=== PATIENT | male | born 1990 | race Caucasian/White ===

== ENCOUNTER 2016-07-03 11:41 | Emergency (ER) | payer OTHER ==
--- NOTE | ~2016-07-03 | CR63 ---
[facility] Service of [facility] RADIOLOGY TEXT RESULTS PATIENT: JOSETTE MORALES LOCATION: [place] : [birth year] UNIT #: [id number] AGE: [address]: Akira Edouard MD SEX: M ORDER DR: [id number] [facility] [address] [facility]. [place], [place] [address] [id number] MR#: [id number] Acc #: [id number] NAME: JOSETTE MORALES : 1990 SEX: M STUDY DATE/TIME: 07/03/2016 13:56 UNIT: [facility] ROOM: STUDY DESCRIPTION: CR Chest 2 View Attending Physician: Akira Edouard M.D. Ordering Physician: Akira Edouard M.D. Primary Care Physician: Primary Care Physician No MEDICAL IMAGING REPORT This report is preliminary unless electronic signature is present EXAM Chest PA and lateral, 07/03/2016 HISTORY Shortness breath and cough beginning 4 days ago. FINDINGS PA and lateral examination of the chest upright shows a good expansion of the parenchyma with a normal distribution of the pulmonary vascularity. There is no indication of congestion, effusion, infiltrate, tumor, or nodular density. The pleural reflections and diaphragmatic contours are normal. The cardiac silhouette and mediastinal anatomy is within normal limits. IMPRESSION Normal chest. Dictated by... Tono Raygoza M.D. THIS IS AN ELECTRONICALLY VERIFIED REPORT Tono Raygoza M.D. at 07/04/2016 8:02 AM LEONID/hernán TD: 07/03/2016 15:36 JOB #: [id number] MEDICAL IMAGING REPORT Page 1 of 1 COPY
[~2016-07-03 11:41] MED LIST: AMOXICILLIN PO; FLEXERIL10 MG PO; NAPROSYN500 MG PO; NORCO 5/325 TAB1 TAB PO
[2016-07-03 14:17] LABS: INFLUENZA A NEG (NEG); INFLUENZA B NEG (NEG)
== END 2016-07-03 14:44 | disposition home or self-care (01) ==
LOC: CED 11:41
PROVIDERS: Emergency Medicine
DX: J06.9 Acute upper respiratory infection, unspecified (principal); J30.2 Other seasonal allergic rhinitis
CPT/HCPCS: 71020; 87804; 99284

== ENCOUNTER 2016-07-08 19:00 | Inpatient (IN) | payer OTHER ==
--- NOTE | ~2016-07-08 | PN ---
Unit #: [id number] #: [id number] Patient: ALONZO MORALES [id number] [facility] [address] [place] [address] [id number] MR#: [id number] NAME: ALONZO MORALES ROOM: [facility] Age: 26 Sex: M Admission Date: 07/08/2016 : 1990 Attending Physician: Tommie Lizama M.D. Admitting Physician: Tommie Lizama M.D. Primary Care Physician: Primary Care Physician Glenda CARTER NOTES DATE OF SERVICE 07/10/2016 DISCUSSION Alonzo Morales is a 26-year-old male seen on 07/10/2016. Patient interviewed, chart reviewed, I obtained information from nursing staff. Patient compliant, cooperative, mood sad, dysphoric, withdrawn, isolative, guarded. Denied any thoughts of harming self or others, but still having above-mentioned symptoms, tolerating medication fairly well. Vital signs stable: 98.5, 79, 126/80 COMPLETE REVIEW OF SYSTEMS Unremarkable. MENTAL STATUS EXAMINATION GENERAL APPEARANCE: Patient dressed casually. ATTENTION SPAN AND CONCENTRATION: Fair. Oriented in place and person. MOOD AND AFFECT: Labile. SPEECH: Regular rate. THOUGHT PROCESS: Goal directed. Patient denied any thoughts of harming self or others. RECENT AND REMOTE MEMORY: Poor. INSIGHT AND JUDGMENT: Poor. DIAGNOSES Mood disorder, NOS Amphetamine abuse disorder, moderate ASSESSMENT/PLAN Advised to continue with current medication and therapeutic protocol. If needed, consider further adjustment on medication. Dictated by... Anette Randall/francisco TD: 07/11/2016 00:09 JOB #: [id number] Unit #: [id number] #: [id number] Patient: ALONZO MORALES PROGRESS NOTES Page 1 of 1 X Tommie Lizama MD PROGRESS NOTE
--- NOTE | ~2016-07-08 | HP ---
Unit #: [id number] #: [id number] Patient: ALONZO MORALES [id number] [place] [address] [id number] MR#: [id number] NAME: ALONZO MORALES ROOM: [facility] Age: 26 Sex: M Admission Date: 07/08/2016 : 1990 Attending Physician: Tommie Lizama M.D. Admitting Physician: Tommie Lizama M.D. Primary Care Physician: Primary Care Physician No HISTORY AND PHYSICAL HISTORY OF PRESENT ILLNESS Alonzo is a 26 [address] [facility] because of his drug use. He smokes meth. PAST MEDICAL HISTORY 1. History of illicit substance abuse. 2. Psoriasis. 3. Hepatitis C. PAST SURGICAL HISTORY Nothing reported. ALLERGIES No known drug allergies. SOCIAL HISTORY Smokes one pack per day. Denies alcohol. Admits to a long history of illicit substance abuse to include methamphetamine. FAMILY HISTORY Medically noncontributory. REVIEW OF SYSTEMS CONSTITUTIONAL: No fever or chills. HEENT: Denies any sore throat, ear pain or runny nose. CARDIOVASCULAR: Denies chest pain, irregular heart rhythm or palpitations. LUNGS: He does report a deep harsh cough for the past 48 hours productive of moderate amounts of dark yellow sputum. He denies any increased temperature or shortness of breath. GASTROINTESTINAL: Denies nausea, vomiting, diarrhea or chronic constipation. ENDOCRINE: Denies history of increased thirst or urination. No recent significant weight loss or gain. GENITOURINARY: Denies dysuria, frequency, or hematuria. SKIN: Denies any rashes. HEMATOLOGIC: Denies history of increased bleeding or bruising. MUSCULOSKELETAL: Denies any hot, swollen joints. No generalized muscle pain. NEUROLOGIC: Denies problems with vision or speech. No frequent, severe headaches. No numbness, tingling or weakness in any extremities. Denies loss of bladder or bowel control. Unit #: [id number] #: [id number] Patient: ALONZO MORALES CURRENT MEDICATIONS 1. Zyprexa 10 mg q.h.s. 2. Celexa 20 mg q day 3. Nicotine patch 14 mg q day 4. Trazodone p.r.n. 5. Milk of Magnesia p.r.n. 6. Maalox p.r.n. 7. Tylenol p.r.n. PHYSICAL EXAMINATION GENERAL: Alert, well-nourished, in no apparent distress. VITAL SIGNS: Blood pressure 126/70, heart rate 80, respirations 16, temperature 98.6. WEIGHT: 175 pounds. HEIGHT: 5'9". SKIN: Warm and dry without rash or lesion. HEENT: Normocephalic. TMs not viewed. Oral and nasal passages clear. Conjunctivae clear. Pupils equal, round and reactive to light and accommodation. Extraocular movements intact. NECK: Supple without lymphadenopathy or thyromegaly. HEART: Regular rate and rhythm without murmur. CHEST: Deep harsh cough noted. Bilateral rhonchi. ABDOMEN: Soft, nontender. : Not done. EXTREMITIES: No evidence of cyanosis, clubbing or edema. Moves all extremities without focal deficit. NEUROLOGICAL: Grossly within normal limits. Cranial Nerves: II: Visual vasquez are intact. III, IV AND : Extraocular movements are intact. Pupils are equal, round and reactive to light. V: Facial sensation is grossly normal. VII: Facial movements and expression are normal. VIII: Auditory acuity grossly intact. IX, X: Uvula is midline. Phonation is normal. XI: Patient shrugs shoulders and turns head normally. XII: Tongue protrudes in the midline. Sensory and Motor Function: Sensory and motor sensation is grossly normal. Motor: moves all extremities well. Coordination: Gait is normal. Deep Tendon Reflexes: Intact. IMPRESSION Psychiatric admission RECOMMENDATIONS PSYCHIATRIC: Per psychiatrist. MEDICAL: 1. I see no contraindications to participating in facility's activities. 2. Start levaquin 500 mg 1 p.o. b.i.d. x 7 days. MEDICAL PROGNOSIS Good. MEDICAL CONDITION Stable. Unit #: [id number] #: [id number] Patient: ALONZO MORALES Dictated by... Lelia Graves P.A.-C. for Anette Asher/janelle TD: 07/10/2016 04:19 JOB #: [id number] HISTORY AND PHYSICAL Page 1 of 1 X Lelia Graves X HISTORY AND PHYSICAL
--- NOTE | ~2016-07-08 | PA ---
Unit #: [id number] #: [id number] Patient: JOSETTE MORALES [id number] [facility] [address] [place] [address] [id number] I MR#: [id number] NAME: JOSETTE MORALES ROOM: [facility] Age: 26 Sex: M Admission Date: 07/08/2016 : 1990 Date of Assessment: 07/09/2016 Attending Physician: Tommie Lizama M.D. Admitting Physician: Tommie Lizama M.D. Primary Care Physician: Primary Care Physician No PSYCHIATRIC ASSESSMENT INFORMANTS The patient reliability, fair; chart reliability, good. CHIEF COMPLAINT Depression and substance abuse. HISTORY OF PRESENT ILLNESS Mr. Rosado is a 26-year-old male, presented with the above-mentioned complaint. The patient reported having suicidal ideation with a plan to overdose on drugs. The patient reported that he does not know how to be happy anymore. The patient reported that he went to custodial for 5 years and he came out, lost everything. Reported lost custody of his daughter. The patient reports strained relationship with his mother due to the fact that his mother does not like his girlfriend. The patient reports that he has hepatitis C and psoriasis. The patient reports he smokes and snorts a gram of ice daily and last use was Saturday. The patient denied any homicidal ideation at this time. Sad, depressed, hopeless. Needing inpatient admission at this time for psychiatric stabilization. PAST PSYCHIATRIC HISTORY Remarkable for history of previous treatment. Details unknown at this time. FAMILY AND SOCIAL HISTORY The patient has a poor support system. No known history of any abuse. The patient reported history of alcohol abuse in mother and father. MEDICAL HISTORY Remarkable for hepatitis C and psoriasis. Musculoskeletal; muscle strength and tone, no atrophy or abnormal movement. Gait normal. MEDICATION HISTORY None. ALLERGIES No known drug allergies. SUBSTANCE ABUSE HISTORY The patient reported tobacco use, age of onset 13; marijuana, age of onset 11; and amphetamine, age of onset 18. Longest period of sobriety 5 years. The patient reported history of hepatitis. No history of any blackout or history of IV drug use. Denied any withdrawal symptom. Unit #: [id number] #: [id number] Patient: JOSETTE MORALES REVIEW OF SYSTEMS HEENT: Eyes, clear. Ears, nose, mouth, and throat; clear. CARDIOVASCULAR: Unremarkable. RESPIRATORY: Unremarkable. GI: Unremarkable. : Unremarkable. SKIN: Unremarkable. LYMPH NODE: Unremarkable. NEUROLOGIC: Unremarkable. ENDOCRINE: Unremarkable. HEMATOLOGIC: Unremarkable. ALLERGIC/IMMUNOLOGIC: Unremarkable. MUSCULOSKELETAL: Muscle strength and tone, no atrophy or abnormal movement. Gait normal. MENTAL STATUS EXAMINATION CONSTITUTIONAL: Measurement of vital signs; temperature 98.7, pulse 57, respirations 16, oxygen saturation 100%, and blood pressure 126/71. Height 5 feet 9 inches and weight 175 pounds. GENERAL APPEARANCE: The patient dressed casually. The patient did not show any facial deformity. MUSCULOSKELETAL: Please see above. PSYCHIATRIC EXAMINATION Description of speech; regular rate, normal volume, normal articulation. Description of thought process, goal directed. Description of association, intact. Description of abnormal psychotic thinking; the patient denied any hallucinations or delusions, but paranoia, mood lability, depression, suicidal ideation, substance abuse. Denied any thoughts of harming others. Description of the patient's judgment: Concerning everyday activity, poor. Social situation, poor. Concerning psychiatric condition, poor. Complete mental status examination; oriented in time, place, and person. Recent and remote memory, fair. Attention span and concentration, fair. Language; able to name object, repeat phrases. Fund of knowledge; aware of current event, passive vocabulary intact. Mood and affect, sad and dysphoric. Insight and judgment, fair to poor. DIAGNOSES Psychiatric: 1. Mood disorder, not otherwise specified, F32.9. 2. Rule out major depressive disorder, F33.2. 3. Amphetamine use disorder, moderate, F15.20. Secondary diagnosis: Deferred. Medical diagnoses: Hepatitis C, psoriasis. Stressors: Psychosocial stressors. PSYCHIATRIC PLAN, TREATMENT GOAL, AND DISCHARGE PLAN 1. Advised to admit the patient on the inpatient unit. Provide safe, supportive, and structured environment. 2. Ordered labs; CBC, CMP, UA, and UDS. 3. Precaution for aggression, self-harm, and detox monitoring. 4. Advised to start the patient on Celexa 20 mg daily for depression, Zyprexa 10 mg at bedtime for mood stabilization and psychosis, and trazodone 75 mg q.h.s. p.r.n. for sleep. Unit #: [id number] #: [id number] Patient: JOSETTE MORALES 5. The patient is to attend all the programing, group therapy, individual therapy, medication management, if possible family therapy. 6. Treatment goal is to attain euthymic mood, gain insight into his problem, and learn coping skills. 7. Discharge plan: Plan is to stabilize the patient and consider followup in outpatient program. ESTIMATED LENGTH OF STAY 3 to 5 days. Dictated by... Anette Randall/junito TD: 07/10/2016 05:43 JOB #: [id number] PSYCHIATRIC ASSESSMENT Page 1 of 1 X Tommie Lizama MD X PSYCHIATRIC ASSESSMENT
--- NOTE | ~2016-07-08 | DS ---
Unit #: [id number] #: [id number] Patient: JOSETTE MORALES [id number] [facility] [address] [place] [address] [id number] MR#: [id number] NAME: JOSETTE MORALES ROOM: [facility] Age: 26 Sex: M Admission Date: 07/08/2016 : 1990 Discharge Date: 07/11/2016 Attending Physician: Tommie Lizama M.D. Primary Care Physician: Primary Care Physician No DISCHARGE SUMMARY REASON FOR ADMISSION Suicidal ideation and methamphetamine abuse. DIAGNOSTIC STUDIES LABORATORY RESULTS: Unremarkable. HOSPITAL COURSE The patient was admitted to inpatient unit on 07/08/2016 and discharged on 07/11/2016. The patient was treated on the inpatient unit with group therapy, individual therapy, medication management, and responded well with the above modalities of treatment. The patient was able to maintain safe behavior. Subsequently, the patient was discharged with a plan to follow up in outpatient program. DISCHARGE MEDICATIONS Desyrel 50 mg at bedtime for sleep, Celexa 20 mg at bedtime for depression, Zyprexa 10 mg at bedtime for psychosis and mood stabilization, and Levaquin 500 mg once daily for infection for 5 days. DISCHARGE DIAGNOSES Psychiatric: Mood disorder, not otherwise specified, F32.9; rule out major depressive disorder, recurrent, moderate, F33.2; and amphetamine use disorder, moderate, F15.20. Secondary diagnosis: Deferred. Medical diagnoses: Hepatitis C and psoriasis. Stressors: Psychosocial stressors. DISCHARGE INSTRUCTIONS The patient to follow up in outpatient clinic as per social sciences department chair. CONDITION ON DISCHARGE The patient was pleasant and cooperative. Denied any psychotic symptom or any suicidal ideation. PROGNOSIS Guarded. DIET AND ACTIVITY As tolerated. Unit #: [id number] #: [id number] Patient: JOSETTE MORALES Dictated by... Tommie Lizama M.D. SZC/junito TD: 07/11/2016 18:42 JOB #: [id number] DISCHARGE SUMMARY Page 1 of 1 X Tommie Lizama MD X DISCHARGE SUMMARY
[2016-07-09 10:00] LABS: BASOPHIL% 0.3 % (0-2.5); EOSINOPHIL# 0.3 X10e3 (0-0.7); EOSINOPHIL% 3.3 % (0.0-7.0); HEMATOCRIT 43.5 % (38.0-50.0); HEMOGLOBIN 14.7 gm/dL (13.0-16.0); LYMPHOCYTE# 2.4 X10e3 (1.0-3.5); MEAN CELL VOLUME 87.5 FL (83-96); MEAN CORPUSCULAR HEMOGLOBIN 29.6 PG (28-34); MEAN CORPUSCULAR HGB CONC 33.8 g/dL (30-36); MEAN PLATELET VOLUME 8.1 FL (6.5-11.5); MONOCYTE# 0.9 X10e3 (0-1.0); MONOCYTE% 8.5 % (3.0-12.0); NEUTROPHIL# 6.8 X10e3 (1.5-7.1); NEUTROPHIL% 64.9 % (40-75); PLATELET COUNT 252 X10e3 (140-420); RED BLOOD COUNT 4.97 X10e (3.90-5.60); RED CELL DISTRIBUTION WIDTH 12.9 % (11.0-15.5); WHITE BLOOD COUNT 10.5 X10e3 (4.0-10.5)
[2016-07-09 10:27] LABS: DIFF IND NO
[2016-07-09 10:39] LABS: ALBUMIN SERUM 3.5 g/dL (3.5-5.0); BILIRUBIN,TOTAL 0.5 mg/dL (0.2-2.0); BUN/CREATININE RATIO 17.5; CALCIUM SERUM 8.9 mg/dL (8.4-10.2); CREATININE SERUM 0.8 mg/dL (0.6-1.4); GLOM FILT RATE Estimated 121.6 mL/min (>60); POTASSIUM 3.8 mmol/L (3.5-5.1); PROTEIN TOTAL SERUM 6.8 g/dL (6.0-8.3)
== END 2016-07-11 09:40 | disposition home or self-care (01) | DRG 885 ==
LOC: P1E 23:00
PROVIDERS: Psychiatry & Neurology Psychiatry
PROC: HZ2ZZZZ Detoxification Services for Substance Abuse Treatment (ICD-10-PCS; principal; 2016-07-09)
DX: F39 Unspecified mood [affective] disorder (principal); F33.2 Major depressive disorder, recurrent severe without psychotic features; R45.851 Suicidal ideations; F15.20 Other stimulant dependence, uncomplicated; B19.20 Unspecified viral hepatitis C without hepatic coma; L40.9 Psoriasis, unspecified
CPT/HCPCS: 80053; 85025

== ENCOUNTER 2016-07-08 19:06 | Emergency (ER) | payer OTHER | END 2016-07-08 22:29 | disposition other institution (70) | LOC: CED 19:06 | DX: F15.20 Other stimulant dependence, uncomplicated (principal); F11.20 Opioid dependence, uncomplicated; R45.851 Suicidal ideations; F17.210 Nicotine dependence, cigarettes, uncomplicated; L40.9 Psoriasis, unspecified; Z86.19 Personal history of other infectious and parasitic diseases; Z91.09 Other allergy status, other than to drugs and biological substances | CPT/HCPCS: 99285 ==